=== PATIENT | female | born 1965 | race Caucasian/White ===

== ENCOUNTER 2019-10-06 06:31 | Day surgery (SDC) | payer OTHER ==
[2019-10-05 13:00] VITALS: BMI 21.0
[~2019-10-06 06:31] MED LIST: ACETAMINOPHEN 325 MG TABLET (FP) PO PRN; CYCLOPENTOLATE HCL 1% OPHTH SOLN 2 ML BOTTLE OP SCH; KETOROLAC TROMETHAMINE 0.5% EYE DROP 1 DROP DROPS OP SCH; OFLOXACIN 0.3% OPHTHALMIC SOLUTION 5 ML BOTTLE OP SCH; PHENYLEPHRINE 2.5% OPHTH SOLN 15 ML BOTTLE OP SCH; TROPICAMIDE 1% OPHTH SOLN 15 ML BOTTLE OP SCH
[2019-10-06] MEDS ORDERED: TETRACAINE 0.5% OPHTH SOLN 2 ML BOTTLE ONE (07:21)
[2019-10-06] MEDS ORDERED: LIDOCAINE HCL/PF 2% SDV 5ML VIAL ONE ×2 (07:21→08:24)
[2019-10-06] MEDS ORDERED: LIDOCAINE HCL/PF 1% SDV 5ML VIAL ONE (07:21)
[2019-10-06] MEDS ORDERED: POVIDONE-IODINE 5% OPHTHALMIC PREP 30 ML SOLUTION ONE (07:22)
[2019-10-06] MEDS ORDERED: TRYPAN BLUE 0.5 ML DISP.SYRIN ONE ×2 (07:22→08:06)
[2019-10-06] MEDS ORDERED: BSS (NA/CA/MG/K) BALANCED SALT SOLUTION OPHTH SOLN 15 ML BOTTLE ONE (07:22)
[2019-10-06] MEDS ORDERED: OFLOXACIN 0.3% OPHTHALMIC SOLUTION 5 ML BOTTLE OD ONE ×3 (07:30→07:50)
[2019-10-06] MEDS ORDERED: KETOROLAC TROMETHAMINE 0.5% EYE DROP 1 DROP DROPS OD ONE ×3 (07:30→07:50)
[2019-10-06] MEDS ORDERED: PHENYLEPHRINE 2.5% OPHTH SOLN 15 ML BOTTLE OD ONE ×3 (07:30→07:50)
[2019-10-06] MEDS ORDERED: CYCLOPENTOLATE HCL 1% OPHTH SOLN 2 ML BOTTLE OD ONE ×3 (07:30→07:50)
[2019-10-06] MEDS ORDERED: TROPICAMIDE 1% OPHTH SOLN 15 ML BOTTLE OD ONE ×3 (07:30→07:50)
[2019-10-06] MEDS ORDERED: HYALURONATE SODIUM 14 MG/ML DISP.SYRIN IO ONE ×2 (08:04→09:08)
[2019-10-06] MEDS ORDERED: CHONDROITIN SU A/HYALUR SOD 1 KIT ONE (08:04)
[2019-10-06] MEDS ORDERED: MANNITOL 25% 12.5 GM/50 ML VIAL IVPB ONE (08:13)
[2019-10-06] MEDS ORDERED: MIDAZOLAM HCL 2 MG/2 ML SINGLE DOSE VIAL ONE (08:24)
[2019-10-06] MEDS ORDERED: PROPOFOL 20 ML ONE (08:24)
[2019-10-06] MEDS ORDERED: BUPIVACAINE HCL/PF 0.75% 10 ML VIAL RB ONE (08:53)
[2019-10-06] MEDS ORDERED: LIDOCAINE HCL/PF 2% SDV 5ML VIAL INF ONE (08:53)
[2019-10-06] MEDS ORDERED: POVIDONE-IODINE 5% OPHTHALMIC PREP 30 ML SOLUTION OD ONE (08:58)
[2019-10-06] MEDS ORDERED: BSS (NA/CA/MG/K) BALANCED SALT SOLUTION OPHTH SOLN 15 ML BOTTLE OD ONE (09:08)
[2019-10-06] MEDS ORDERED: CHONDROITIN SU A/HYALUR SOD 1 KIT IO ONE (09:08)
[2019-10-06] MEDS ORDERED: LIDOCAINE HCL 1% PRESERVATIVE FREE - 30ML VIAL IO ONE (09:08)
[2019-10-06] MEDS ORDERED: TRYPAN BLUE 0.5 ML DISP.SYRIN IO ONE (09:08)
[2019-10-06] MEDS ORDERED: EPINEPHrine/PF 1 MG/1 ML (1:1,000) AMPULE SQ ONE (09:13)
[2019-10-06] MEDS ORDERED: ACETYLCHOLINE 1:100 INTRA-OCUL 20 MG/2 ML KIT ONE (09:29)
[2019-10-06] MEDS ORDERED: ACETYLCHOLINE 1:100 INTRA-OCUL 20 MG/2 ML KIT IO ONE (09:35)
[2019-10-06 10:04] VITALS: TEMP 98
[2019-10-06 10:42] VITALS: BP 135/71; PULSE 67
--- NOTE | 2019-10-07 09:48 | OP ---
DATE OF OPERATION: 10/06/2019 PREOPERATIVE DIAGNOSIS: Mature cataract, right eye. POSTOPERATIVE DIAGNOSIS: Mature cataract, right eye. PROCEDURE: Phacoemulsification of right cataract with posterior chamber intraocular lens implantation and capsule stained with trypan blue. The lens used, [id number], 20.0 diopter power, serial number [id number]. ANESTHESIA: Peribulbar/modified Van Lint/MAC. COMPLICATIONS: None. DESCRIPTION OF PROCEDURE: The patient was brought to the operating room and correctly identified along with the operative site, as well as correct intraocular lens katz. Under sedation, the patient was then given a peribulbar block with 5 mL of 1:1 mixture of 2% lidocaine and 0.75% bupivacaine. Two milliliters of the same mixture was given as a modified Van Lint eyelid block. The eye was then prepped and draped in the usual sterile fashion including 5% Betadine solution in the conjunctival sac and an eyelid drape. An eyelid speculum was then placed into the right eye. The eye was inspected and a white cataract was noted. A paracentesis port was created, and 0.5 mL of preservative-free 1% lidocaine was given intracamerally. Air was then placed in the anterior chamber and the anterior chamber stained with trypan blue. Next, 0.5 mL of the preservative-free lidocaine 1% was then placed inside the eye to remove the trypan blue. Viscoelastic was then placed in the anterior chamber in an Arshinoff soft-shell technique using Healon GV and Viscoat. A temporal clear corneal wound created. A continuous circular capsulorrhexis was successfully performed. The nucleus was then hydrodissected with BSS and removed with phacoemulsification without any complications. The remaining cortical material was irrigated and aspirated from the eye. Viscoelastic was then injected to inflate the capsular bag. The lens was then injected into the capsular bag, and the viscoelastic was removed from the eye. The wounds were then stromal hydrated and tested. There did not seem to be stability in the anterior chamber perhaps due to the positive pressure despite a well-constructed wound. A single 10-0 nylon suture was placed. There appeared to be some iris captured in the wound; however, this was freed by filling the anterior chamber after the 10-0 nylon suture was placed in the temporal clear corneal wound. Miochol was placed to constrict the pupil to ensure that the iris was not incarcerated. At the end of the procedure, all wounds were tested and found to be watertight. No further sutures were placed. The intraocular lens was noted to be well centered, covered by the anterior chamber border, and the iris was noted to be free of the corneal wound. Topical vancomycin given, the eye patched and shielded, and the patient discharged from the orbital rim in a stable condition. CHER BARROS M.D. [id number]
== END 2019-10-06 10:30 | disposition home or self-care (01) ==
LOC: JASU-SURG 06:31
PROVIDERS: ATTEND Ophthalmology
PROC: 08RJ3JZ Replacement of Right Lens with Synthetic Substitute, Percutaneous Approach (ICD-10-PCS; principal; 2019-10-06 09:00)
DX: H25.89 Other age-related cataract (principal)